=== PATIENT | female | born 1970 | race Caucasian/White ===

== ENCOUNTER → 2017-04-24 | Outpatient (CLI) | payer OTHER | LOC: FIMAGING 16:11 | PROVIDERS: ATTEND Internal Medicine | DX: Z12.31 Encounter for screening mammogram for malignant neoplasm of breast (principal); Z85.43 Personal history of malignant neoplasm of ovary | CPT/HCPCS: G0202 ==

== ENCOUNTER → 2017-12-14 | Outpatient (CLI) | payer OTHER | LOC: CIMAGING 16:54 | PROVIDERS: ATTEND Internal Medicine | DX: N88.9 Noninflammatory disorder of cervix uteri, unspecified (principal); N13.30 Unspecified hydronephrosis; Z85.43 Personal history of malignant neoplasm of ovary | CPT/HCPCS: 76770-PO; 76856-PO ==

== ENCOUNTER → 2017-12-29 | Outpatient (CLI) | payer OTHER ==
[~2017-12-29] MED LIST: IOPAMIDOL (ISOVUE-300) 100 ML BTL ONE
== END ==
LOC: CIMAGING 14:22
PROVIDERS: ATTEND Internal Medicine
DX: N28.1 Cyst of kidney, acquired (principal); Z85.43 Personal history of malignant neoplasm of ovary
CPT/HCPCS: 74178-PO; Q9967

== ENCOUNTER → 2018-04-27 | Outpatient (CLI) | payer OTHER | LOC: FIMAGING 15:51 | PROVIDERS: ATTEND Internal Medicine | DX: Z12.31 Encounter for screening mammogram for malignant neoplasm of breast (principal); Z80.3 Family history of malignant neoplasm of breast; Z85.43 Personal history of malignant neoplasm of ovary ==